=== PATIENT | male | born 1985 | race Caucasian/White ===

== ENCOUNTER 2019-03-31 18:52 | Emergency (ER) | payer BC ==
[~2019-03-31] VITALS: Ht 180.3 cm; Wt 95.3 kg
== END 2019-03-31 21:29 | disposition home or self-care (01) ==
LOC: ED 18:52
DX: J18.9 Pneumonia, unspecified organism (principal)
CPT/HCPCS: 71046; 80053; 81001; 83605; 85025; 96361; 96374; 96375; 99285-25; J1170; J1885; J2405; J7030

== ENCOUNTER 2024-09-21 02:10 | Emergency (ER) | payer OTHER, BC ==
[~2024-09-21] VITALS: Ht 180.3 cm; Wt 95.0 kg
--- OUTSIDE RECORDS SUMMARY | ~2024-09-21 | XMS | Continuity of Care Document ---
Demographics + + + | Address | [address] | | | [place] [address] | + + + | Preferred Language | Unknown | + + + | Marital Status | | + + + | Gnosticist Affiliation | Unknown | + + + | Race | White | + + + | Ethnic Group | Unknown | + + + Author + + + | Author | [facility] | + + + | Organization | [facility] | + + + | Address | [address] | | | [place] [address] | + + + | Phone | | + + + Care Team Providers + + + + | Care Electric Plater Name | Role | Phone | + + + + Unavailable | Unavailable | + + + + Unavailable | Unavailable | + + + + Allergies No information. Encounters No information. Functional Status No information. Immunizations No information. Medications No information. Problems + + + + | date | description | facility | + + + + | 2024-08-02 00:00 | Chest pain (finding) | [facility] | + + + + | 2024-08-02 00:00 | Chest Pain | [facility] | + + + + | 2024-08-02 00:00 | [facility] | + + + + | 2024-08-02 00:00 | Flank Pain | [facility] | + + + + Procedures + + + + | date | description | facility | + + + + | 2024-08-02 00:00 | Tobacco use assessed | [facility] | + + + + | 2024-08-02 00:00 | Controlling Blood | [facility] | | | Pressure; Most recent | | | | Systolic <130mm Hg | | + + + + | 2024-08-02 00:00 | Controlling BP; Most | [facility] | | | recent Diastolic BP btwn | | | | 80-89 mm Hg | | + + + + | 2024-08-02 00:00 | UA- Micro | [facility] | + + + + | 2024-08-02 00:00 | UA Urinalysis Automated | [facility] | | | W/O Micro | | + + + + Results/Labs No information. Social History + + + + | date | description | facility | + + + + | 2024-08-02 00:00 | Unknown if ever smoked | [facility] | + + + + Vital Signs + + + +---------+ | date | measurement | value | units | + + + +---------+ | 2024-08-02 00:00 | BMI | 30.1 | 1 | + + + +---------+ | 2024-08-02 00:00 | BP_diastolic | 84 | mmHg | + + + +---------+ | 2024-08-02 00:00 | BP_systolic | 128 | mmHg | + + + +---------+ | 2024-08-02 00:00 | BSA | 2.2 | 1 | + + + +---------+ | 2024-08-02 00:00 | heart_rate | 112 | /min | + + + +---------+ | 2024-08-02 00:00 | height_metric | 180.34 | cm | + + + +---------+ | 2024-08-02 00:00 | height_standard | 71 | in | + + + +---------+ | 2024-08-02 00:00 | o2_saturation | 97 | % | + + + +---------+ | 2024-08-02 00:00 | respiration_rate | 16 | /min | + + + +---------+ | 2024-08-02 00:00 | temperature_metric | 36.78 | C | | | | | | + + + +---------+ | 2024-08-02 00:00 | | 98.2 | F | | | temperature_standar | | | | | d | | | + + + +---------+ | 2024-08-02 00:00 | weight_metric | 97.79 | kg | + + + +---------+ | 2024-08-02 00:00 | weight_standard | 215.6 | lb | + + + +---------+"
[2024-09-21 02:42] VITALS: BP 141/101
[2024-09-22 14:49] LABS: HEPATITIS B SURFACE ANTIBODY 30.31 IU/L (())
[2024-09-22 17:15] LABS: HIV 1,2 COMBO ANTIGEN/ANTIBODY Negative (Negative)
[2024-09-22 17:44] LABS: HEPATITIS C AB CIA INTERP Negative (Negative); HEPATITIS C ANTIBODY CIA INDEX 0.14 IV (())
== END 2024-09-21 02:50 | disposition home or self-care (01) ==
LOC: ED 02:10
PROVIDERS: Family Medicine
DX: Z77.21 Contact with and (suspected) exposure to potentially hazardous body fluids (principal)
CPT/HCPCS: 36415; 84460; 86706; 86803; 99283